=== PATIENT | female | born 1980 | race Caucasian/White ===

== ENCOUNTER 2017-07-31 22:42 | Emergency (ER) | payer MEDICAID ==
[2017-08-01 02:55] VITALS: BP 106/71
== END 2017-08-01 02:55 | disposition home or self-care (01) ==
LOC: ED 22:42
DX: S60.452A Superficial foreign body of right middle finger, initial encounter (principal); X58.XXXA Exposure to other specified factors, initial encounter; Y93.89 Activity, other specified; Y92.89 Other specified places as the place of occurrence of the external cause; Y99.8 Other external cause status
CPT/HCPCS: 90715; J2001